=== PATIENT | female | born 1965 | race Caucasian/White ===

== ENCOUNTER 2017-08-06 18:06 | Emergency (ER) | payer OTHER ==
[~2017-08-06] VITALS: Ht 160 cm; Wt 69.4 kg
[2017-08-06] MEDS ORDERED: DESITIN113 GM TOP (19:03)
[2017-08-06] MEDS ORDERED: MEDROLDOSEPACK PO ×2 (19:03→19:05)
[2017-08-06] MEDS ORDERED: MICONAZOLE NITR45 G3 TOP (19:05)
[2017-08-06 19:16] VITALS: BP 118/68
== END 2017-08-06 19:17 | disposition home or self-care (01) ==
LOC: M.ERS 18:06
DX: L30.4 Erythema intertrigo (principal); Z90.710 Acquired absence of both cervix and uterus

== ENCOUNTER 2018-03-11 09:12 | Emergency (ER) | payer BC ==
[~2018-03-11] VITALS: Ht 160 cm; Wt 81.7 kg
[~2018-03-11 09:12] MED LIST: DESITIN113 GM TOP; MEDROLDOSEPACK PO; MICONAZOLE NITR45 G3 TOP
[2018-03-11 09:53] LABS: HEMATOCRIT 38.2 % (37.0-47.0); HEMOGLOBIN 12.7 gm/dL (12.0-15.0); MCH 31.7 pg (26.0-34.0); MCHC 33.3 g/dL (28.0-37.0); MCV 95.4 fL (80.0-100.0); MPV 8.5 fl. (7.2-11.1); NUCLEATED RBCS 0 /100WBC; PLATELET COUNT* 205 thou/uL (150-400); RDW-CV 13.8 % (10.5-14.5); WBC 7.2 thou/uL (4.0-11.0)
[2018-03-11 10:04] LABS: ANION GAP 3 mmol/L (7-16); BUN 8 mg/dL (7-18); CALCIUM 9.2 mg/dL (8.5-10.1); CHLORIDE 106 mmol/L (98-107); CO2 31 mmol/L (21-32); CREATININE 0.7 mg/dL (0.6-1.3); GLUCOSE 93 mg/dL (70-99); POTASSIUM 4.2 mmol/L (3.5-5.1); SODIUM 140 mmol/L (136-145)
[2018-03-11 10:05] LABS: INFLUENZA A ANTIGEN None Detected (None Detect); INFLUENZA B ANTIGEN None Detected (None Detect)
[2018-03-11 10:10] LABS: ALBUMIN 3.1 g/dL (3.4-5.0); ALKALINE PHOSPHATASE 138 U/L (46-116); LIPASE 130 U/L (73-393); SGOT 25 U/L (15-37); SGPT 28 U/L (30-65); TOTAL PROTEIN 6.5 g/dL (6.4-8.2); TROPONIN-I LEVEL <0.06 ng/mL (<0.06)
[2018-03-11 10:11] LABS: TOTAL BILIRUBIN < 0.1 mg/dL (<0.1-1.0)
[2018-03-11 10:20] LABS: ABSOLUTE EOSINOPHILS 1.2 thou/uL (0.0-0.7); ABSOLUTE LYMPHOCYTES 3.2 thou/uL (0.8-5.3); ABSOLUTE MONOCYTES 0.6 thou/uL (0.0-1.2); ABSOLUTE NEUTROPHILS 2.2 thou/uL (1.6-8.1)
[2018-03-11 10:21] LABS: PLATELET ESTIMATE ADEQUATE
[2018-03-11] MEDS ORDERED: ZOFRAN ODT4 MG DISSOLVE (10:35)
[2018-03-11 10:46] VITALS: BP 98/59
--- NOTE | 2018-03-12 13:47 | EKG ---
[place] [address] ELECTROCARDIOGRAM REPORT Name: KIRILL OROZCO Room: [facility].#: [id number] Admission: 03/11/18 Attend Phys: Discharge: 03/11/18 Date of : 69 Report #: [id number] THIS REPORT FOR: //name// [facility] ED Test Date: 2018-03-11 Test Time: 09:33:51 Pat Name: KIRILL ERNESTO Department: Room: Gender: F [employer] Riveter: Aruna GARCIA : 1965 Requested By: Meño Pinzon Order Number: [id number] MD: Alvaro Cates Measurements Intervals [place] Rate: 71 P: 66 [place]: 166 QRS: 54 QRSD: 93 T: 31 QT: 372 QTc: 405 Interpretive Statements Sinus rhythm Borderline low voltage, extremity leads No previous ECG available for comparison Electronically Signed On 03-12-2018 13:47:10 [employer] by Alvaro Cates [email or web address] <ELECTRONICALLY SIGNED> By: Alvaro Cates MD, [facility] 03/12/18 1347 [id number] 2 Alvaro Cates MD, FACC /EPI
== END 2018-03-11 10:50 | disposition home or self-care (01) ==
LOC: M.ERS 09:12
PROVIDERS: Emergency Medicine Emergency Medical Services
DX: R11.2 Nausea with vomiting, unspecified (principal); R19.7 Diarrhea, unspecified; F17.210 Nicotine dependence, cigarettes, uncomplicated; Z90.710 Acquired absence of both cervix and uterus